=== PATIENT | male | born 1990 | race Caucasian/White ===

== ENCOUNTER 2016-12-03 04:24 | Emergency (ER) | payer MEDICAID ==
[2016-12-03] MEDS ORDERED: Sodium Chloride 0.9% 1,000 ML IV ONE (04:34)
[2016-12-03] MEDS ORDERED: Pantoprazole 40 MG Vial IVPUSH ONE (04:38)
--- NOTE | 2016-12-03 04:38 | EDM.PDOC ---
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 Past medical history: As per history of present illness and as reviewed below otherwise noncontributory. Surgical history: As per history of present illness and as reviewed below otherwise noncontributory. Social history: No reported history of drug or alcohol abuse. Family history: As per history of present illness and as reviewed below otherwise noncontributory. Physical exam: HEENT: Atraumatic, normocephalic, pupils reactive, negative for conjunctival pallor or scleral icterus, mucous membranes moist, throat clear, neck supple, nontender, trachea midline. Lungs: Clear to auscultation, breath sounds equal bilaterally, chest nontender. Heart: S1S2, regular, negative for clicks, rubs, or JVD. Abdomen: Soft, nondistended, nontender. Negative for masses or hepatosplenomegaly. Negative for costovertebral tenderness. Pelvis: Stable nontender. Genitourinary: Deferred. Rectal: Deferred. Extremities: Atraumatic, negative for cords or calf pain. Neurovascular unremarkable. Neuro: Awake, alert, oriented. Cranial nerves II through XII unremarkable. Cerebellum unremarkable. Motor and sensory unremarkable throughout. Exam nonfocal. Diagnostics: []3C workup EKG Chest 1 view ABG Therapeutics: []1 L normal saline bolus Mucomyst started presumptively 150 mg/kg over 60 minutes followed by 50 mg/kg over 4 hours; patient weighs 87 kg=== ordered presumptively on arrival prior to lab given patient's history Protoni X 80 milligrams IV Patient transferred [facility] Dr. Lua via ground Impression: Tylenol overdose []Suicide attempt Definitive disposition and diagnosis as appropriate pending reevaluation and review of above. Abdominal Pain Score (Numeric/FACES): 10 - Related Data Allergies Allergy/AdvReac Type Severity Reaction Status Date / Time No Known Allergies Allergy Verified 12/03/16 04:35 Home Meds: Home Meds . [No Known Home Meds] 07/14/13 [History] Past Medical History - Past Health History Medical/Surgical History: Denies Medical/Surgical History Social & Family History - Tobacco Use Years of Tobacco use: 14 Used Tobacco, but Quit: No Second Hand Smoke Exposure: No - Alcohol Use Days Per Week of Alcohol Use: 0 - Recreational Drug Use Recreational Drug Use: Yes Drug Use in Last 12 Months: No Recreational Drug Type: Reports: Methamphetamine Recreational Drug Use Frequency: Not Used In Over 6 Months ED ROS GENERAL - Review of Systems Review Of Systems: ROS reveals no pertinent complaints other than HPI. ED EXAM, GENERAL - Physical Exam Exam: See Below Course - Vital Signs Last Recorded V/S: Last Vital Signs Temp 35.9 C 12/03/16 04:35 Pulse 74 12/03/16 05:19 Resp 20 12/03/16 05:19 BP 130/85 12/03/16 05:19 Pulse Ox 98 12/03/16 05:19 - Orders/Labs/Meds Orders: Active Orders 24 hr Category Date Time Status EKG Documentation Completion [RC] STAT Care 12/03/16 04:29 Active Chest 1V Frontal [CR] Stat Exams 12/03/16 04:29 Taken BLOOD GAS ARTERIAL [BG] Stat Lab 12/03/16 04:38 Ordered DRUG SCREEN, URINE [URCHEM] Stat Lab 12/03/16 04:29 Uncollected UA W/MICROSCOPIC [URIN] Stat Lab 12/03/16 04:29 Uncollected Labs: Laboratory Tests 12/03/16 12/03/16 12/03/16 Range/Units 04:35 04:35 04:35 WBC 8.99 (4.0-11.0) K/uL RBC 5.29 (4.50-5.90) M/uL Hgb 16.5 (13.0-17.0) g/dL Hct 47.4 (38.0-50.0) % MCV 89.6 (80.0-98.0) fL MCH 31.2 (27.0-32.0) pg MCHC 34.8 (31.0-37.0) g/dL RDW Std Deviation 46.0 (28.0-62.0) fl RDW Coeff of Brian 14 (11.0-15.0) % Plt Count 277 (150-400) K/uL MPV 10.10 (7.40-12.00) fL Neut % (Auto) 61.6 (48.0-80.0) % Lymph % (Auto) 31.6 (16.0-40.0) % Corson % (Auto) 5.9 (0.0-15.0) % Eos % (Auto) 0.7 (0.0-7.0) % Baso % (Auto) 0.2 (0.0-1.5) % Neut # (Auto) 5.5 (1.4-5.7) K/uL Lymph # (Auto) 2.8 H (0.6-2.4) K/uL Corson # (Auto) 0.5 (0.0-0.8) K/uL Eos # (Auto) 0.1 (0.0-0.7) K/uL Baso # (Auto) 0.0 (0.0-0.1) K/uL Nucleated RBC % 0.0 /100WBC Nucleated RBCs # 0 K/uL INR (0.86-1.11) Sodium 138 (136-146) mmol/L Potassium 3.6 (3.5-5.1) mmol/L Chloride 105 (98-110) mmol/L Carbon Dioxide 18 L (21-31) mmol/L BUN 22 (6.0-23.0) mg/dL Creatinine 1.1 (0.6-1.5) mg/dL Est Cr Clr Drug Dosing 104.15 mL/min Estimated GFR (MDRD) > 60.0 ml/min Glucose 142 H (60-110) mg/dL Calcium 9.2 (8.8-10.8) mg/dL Total Bilirubin 0.9 (0.1-1.5) mg/dL AST 37 (5-40) IU/L ALT 46 (8-54) IU/L Alkaline Phosphatase 97 (40-150) Creatine Kinase 501 H (9-236) IU/L CK-MB (CK-2) 4.5 (0-6.6) ng/ml Troponin I < 0.10 (0.0-0.29) NG/ML Total Protein 8.4 H (6.0-8.0) g/dL Albumin 4.9 (3.5-5.0) g/dL Globulin 3.5 (2.0-3.5) g/dL Albumin/Globulin Ratio 1.4 (1.3-2.8) TSH 3rd Generation 0.68 (0.47-5.0) uIU/mL Salicylates < 5.0 (0-20) mg/dL Acetaminophen 103.7 H* ug/mL Ethyl Alcohol < 10.0 mg/dL 12/03/16 Range/Units 04:35 WBC (4.0-11.0) K/uL RBC (4.50-5.90) M/uL Hgb (13.0-17.0) g/dL Hct (38.0-50.0) % MCV (80.0-98.0) fL MCH (27.0-32.0) pg MCHC (31.0-37.0) g/dL RDW Std Deviation (28.0-62.0) fl RDW Coeff of Brian (11.0-15.0) % Plt Count (150-400) K/uL MPV (7.40-12.00) fL Neut % (Auto) (48.0-80.0) % Lymph % (Auto) (16.0-40.0) % Corson % (Auto) (0.0-15.0) % Eos % (Auto) (0.0-7.0) % Baso % (Auto) (0.0-1.5) % Neut # (Auto) (1.4-5.7) K/uL Lymph # (Auto) (0.6-2.4) K/uL Corson # (Auto) (0.0-0.8) K/uL Eos # (Auto) (0.0-0.7) K/uL Baso # (Auto) (0.0-0.1) K/uL Nucleated RBC % /100WBC Nucleated RBCs # K/uL INR 1.14 H (0.86-1.11) Sodium (136-146) mmol/L Potassium (3.5-5.1) mmol/L Chloride (98-110) mmol/L Carbon Dioxide (21-31) mmol/L BUN (6.0-23.0) mg/dL Creatinine (0.6-1.5) mg/dL Est Cr Clr Drug Dosing mL/min Estimated GFR (MDRD) ml/min Glucose (60-110) mg/dL Calcium (8.8-10.8) mg/dL Total Bilirubin (0.1-1.5) mg/dL AST (5-40) IU/L ALT (8-54) IU/L Alkaline Phosphatase (40-150) Creatine Kinase (9-236) IU/L CK-MB (CK-2) (0-6.6) ng/ml Troponin I (0.0-0.29) NG/ML Total Protein (6.0-8.0) g/dL Albumin (3.5-5.0) g/dL Globulin (2.0-3.5) g/dL Albumin/Globulin Ratio (1.3-2.8) TSH 3rd Generation (0.47-5.0) uIU/mL Salicylates (0-20) mg/dL Acetaminophen ug/mL Ethyl Alcohol mg/dL Meds: Medications Discontinued Medications Generic Name Dose Route Start Last Admin Trade Name Freq PRN Reason Stop Dose Admin Acetylcysteine 13,050 mg 12/03/16 04:39 12/03/16 05:13 Acetadote 20% IV 12/03/16 04:40 13,050 mg ONETIME ONE Administration Acetylcysteine 4,350 mg 12/03/16 04:45 Acetadote 20% IV 12/03/16 04:46 ONETIME ONE Sodium Chloride 1,000 mls @ 999 mls/hr 12/03/16 04:34 12/03/16 04:49 Normal Saline IV 12/03/16 05:34 999 mls/hr STAT ONE Administration Pantoprazole Sodium 80 mg 12/03/16 04:38 12/03/16 04:49 Protonix Iv IVPUSH 12/03/16 04:39 80 mg .BOLUS ONE Administration Departure - Departure Time of Disposition: 05:47 Disposition: DC/Tfer to Other 70 Condition: Poor Clinical Impression: Tylenol overdose, Suicide attempt by drug ingestion, Methamphetamine use - Discharge Information Referrals: PCP,None [Primary Care Provider] - Forms: ED Department Discharge - My Orders Last 24 Hours: My Active Orders 12/03/16 04:29 EKG Documentation Completion [RC] STAT Chest 1V Frontal [CR] Stat DRUG SCREEN, URINE [URCHEM] Stat UA W/MICROSCOPIC [URIN] Stat 12/03/16 04:38 BLOOD GAS ARTERIAL [BG] Stat - Assessment/Plan Last 24 Hours: My Active Orders 12/03/16 04:29 EKG Documentation Completion [RC] STAT Chest 1V Frontal [CR] Stat DRUG SCREEN, URINE [URCHEM] Stat UA W/MICROSCOPIC [URIN] Stat 12/03/16 04:38 BLOOD GAS ARTERIAL [BG] Stat
[2016-12-03] MEDS ORDERED: Acetylcysteine 20% 200 MG/ML 30 ML SDV IV ONE ×2 (04:39→04:45)
[2016-12-03 05:22] LABS: CHLORIDE,CL 105 mmol/L (98-110); SODIUM,NA 138 mmol/L (136-146)
[2016-12-03 05:26] LABS: ACETAMINOPHEN 103.7 ug/mL
[2016-12-03] MEDS ORDERED: Sodium Chloride 0.9% 1,000 ML IV SCH (06:15)
[2016-12-03 06:49] VITALS: BP 110/71
--- NOTE | 2016-12-03 09:51 | CR ---
EXAM DATE: 12/03/16 PATIENT'S AGE: 26 Patient: SUSANNE TORRES Facility: [place], [place] Site . Site : 1990 Study: XRay Chest [id number]/1/2017 5:02:36 AM Ordering Physician: Koko Mike Final Report: INDICATION: chest pain TECHNIQUE: Chest radiograph 1 view COMPARISON: None FINDINGS: Cardiovascular and mediastinum: The cardiac silhouette is normal in appearance and size. Mediastinum is within normal limits. Lungs and pleural space: Both lungs are unremarkable in appearance. The apices are obscured by a metallic necklace. No sign of pleural effusion. No pneumothorax is seen. Bones and soft tissues: No significant findings. IMPRESSION: 1. No acute cardiopulmonary disease seen. The apices are obscured by a metallic necklace. Dictated by: Jann Hearn MD @ 12/03/2016 05:11:19 (Electronic Signature) Report Signed by Proxy. HUNTER
== END 2016-12-03 06:40 | disposition other institution (70) ==
LOC: MW.ED 04:24
DX: T39.1X2A Poisoning by 4-Aminophenol derivatives, intentional self-harm, initial encounter (principal); F15.10 Other stimulant abuse, uncomplicated
CPT/HCPCS: 71010; 80053; 82550; 82553; 84443; 84484; 85025; 85610; 93005; 96365; 96375; 99285; C9113; G0480; J7040; 99283

== ENCOUNTER 2024-04-13 18:50 | Emergency (ER) | payer MEDICAID ==
[2024-04-13] MEDS: Acetaminophen 500 MG Tab PO STA (19:46)
[2024-04-13] MEDS: Ibuprofen 800 MG Tab PO STA (19:47)
[2024-04-13 19:48] LABS: BASOPHILS ABSOLUTE AUTO 0.06 K/uL (0.00-0.20); BASOPHILS PERCENT AUTO 0.4 % (0.0-1.0); EOSINOPHILS ABSOLUTE AUTO 0.33 K/uL (0.00-0.45); EOSINOPHILS PERCENT AUTO 2.3 % (0.0-6.0); HEMATOCRIT 45.2 % (42.0-52.0); HEMOGLOBIN 15.7 g/dL (14.0-18.0); IMMATURE GRAN ABSOLUTE AUTO 0.04 K/uL (0.00-0.05); IMMATURE GRAN PERCENT AUTO 0.3 % (0.0-0.4); LYMPHOCYTES ABSOLUTE AUTO 2.54 K/uL (1.00-4.80); LYMPHOCYTES PERCENT AUTO 17.8 % (24.0-44.0); MEAN CORPUSCULAR HEMOGLOBIN 30.8 pg (28.0-32.0); MEAN CORPUSCULAR HGB CONC 34.7 g/dL (32.0-36.0); MEAN CORPUSCULAR VOLUME 88.8 fL (83.0-99.0); MEAN PLATELET VOLUME 10.4 fL (9.4-12.4); MONOCYTES ABSOLUTE AUTO 0.93 K/uL (0.00-0.80); MONOCYTES PERCENT AUTO 6.5 % (0.0-8.0); NEUTROPHILS ABSOLUTE AUTO 10.37 K/uL (1.80-7.70); NEUTROPHILS PERCENT AUTO 72.7 % (41.0-71.0); PLATELET COUNT,PLT 244 K/uL (150-400); RED BLOOD CELL COUNT 5.09 M/uL (4.52-5.90); WHITE BLOOD CELL COUNT,WBC 14.27 K/uL (3.9-11.3)
[2024-04-13] MEDS: Sodium Chloride 0.9% 1,000 ML IV STA ×2 (20:03)
[2024-04-13 20:20] LABS: LACTIC ACID 1.9 mmol/L (0.4-2.0)
[2024-04-13 20:27] LABS: A/G RATIO 1.1 (0.9-1.6); ALBUMIN 4.1 g/dL (3.4-5.0); BILIRUBIN TOTAL 0.4 mg/dL (0.2-1.0); CARBON DIOXIDE,CO2 24.6 mmol/L (21.0-32.0); CREATININE 1.3 mg/dL (0.8-1.3); EST CRCL DRUG DOSING (CG) 80.07 mL/min; POTASSIUM,K 4.2 mmol/L (3.5-5.1)
[2024-04-13] MEDS: cefTRIAXone 2 GM in Sodium Chloride 0.9% 50 ML IV STA (20:42)
[2024-04-13] MEDS: Azithromycin 500 MG in Sodium Chloride 0.9% 250 ML IV STA (20:45)
[2024-04-13] MEDS: Iopamidol 755 MG/ML 500 ML Multipack Bottle IVPUSH ONE (21:43)
[2024-04-13 22:38] VITALS: BP 111/61
[2024-04-13 22:52] VITALS: PULSE 71
== END 2024-04-13 23:09 | disposition home or self-care (01) ==
LOC: MW.ED 18:50
DX: J18.9 Pneumonia, unspecified organism (principal); Z87.891 Personal history of nicotine dependence; Z75.8 Other problems related to medical facilities and other health care
CPT/HCPCS: 36415; 71045; 71275; 80053; 83605; 83690; 84484; 85025; 85652; 87040; 87428; 93005; 96361; 96365; 96367; 99285; A9270; J0456; J0696; J3490; J7030; J7050; Q9967; 93010; 99284

== ENCOUNTER 2024-08-29 00:54 | Emergency (ER) | payer MEDICAID ==
[2024-08-29 01:06] VITALS: BP 150/78; PULSE 74
[2024-08-29] MEDS: Ibuprofen 800 MG Tab PO ONE (02:08)
== END 2024-08-29 03:13 | disposition home or self-care (01) ==
LOC: MW.ED 00:54
DX: S90.31XA Contusion of right foot, initial encounter (principal); F17.200 Nicotine dependence, unspecified, uncomplicated; X58.XXXA Exposure to other specified factors, initial encounter
CPT/HCPCS: 73610; 73630; 99283; A9270; 99282